=== PATIENT | female | born 1940 | race Caucasian/White ===

== ENCOUNTER 2021-08-24 10:07 | Outpatient (CLI) | payer MEDICARE | END 2021-08-24 10:08 | disposition home or self-care (01) | LOC: RAD 10:07 | PROVIDERS: ATTEND Internal Medicine Gastroenterology | DX: Z53.9 Procedure and treatment not carried out, unspecified reason (principal); Z80.0 Family history of malignant neoplasm of digestive organs; K57.30 Diverticulosis of large intestine without perforation or abscess without bleeding | CPT/HCPCS: 74280 ==